=== PATIENT | male | born 1950 | race Caucasian/White ===

== ENCOUNTER 2017-01-21 05:37 | Observation (INO) | payer OTHER ==
[~2017-01-21] VITALS: Ht 172.7 cm; Wt 111.6 kg
[2017-01-21] VITALS (7 sets, daily range): BP systolic 106–144; BP diastolic 58–83
--- NOTE | ~2017-01-21 | O ---
[address] [address] OPERATIVE REPORT Name: RAGHAV GALVEZ Room #: 541-P [facility]..#: [id number] Admission: 01/21/17 Attend Phys: Aravind Oneill MD Discharge: Date of : 48 Report #: [id number] THIS REPORT FOR: //name// CC: Rigoberto Oneill DATE OF SERVICE: 01/21/2017 SERVICE: Orthopedics. FACILITY: [facility] SURGEON: Aravind Oneill M.D. RN PARALEGAL: JYOTI Corrales. PREOPERATIVE DIAGNOSES: 1. Right shoulder pain. 2. Right shoulder rotator cuff tear. 3. Right shoulder impingement 4. Right shoulder acromioclavicular joint arthrosis. 5. Right shoulder biceps tendinitis. POSTOPERATIVE DIAGNOSES: 1. Right shoulder pain. 2. Right shoulder rotator cuff tear. 3. Right shoulder impingement. 4. Right shoulder acromioclavicular joint arthrosis. 5. Right shoulder biceps tendinitis. 6. Right shoulder glenohumeral arthritis. PROCEDURES: 1. Right shoulder arthroscopic rotator cuff repair. 2. Right shoulder arthroscopic acromioplasty. 3. Right shoulder arthroscopic distal clavicle excision. 4. Open right shoulder subpectoral biceps tenodesis. COMPLICATIONS: None. DRAINS: None. SPECIMENS: None. ESTIMATED BLOOD LOSS: 5 mL. ANESTHESIA TYPE: General endotracheal with single shot interscalene nerve [address] [address] OPERATIVE REPORT Name: RAGHAV GALVEZ Room [facility]: [facility]#: [id number] Admission: 01/21/17 Attend Phys: Aravind Oneill MD Discharge: Date of : 48 Report #: [id number]. FINDINGS: 1. Full thickness supraspinatus tear with limited retraction repaired with Villar and Nephew Healicoil double loaded suture anchor x2 with single row technique. 2. Biceps tenodesis performed with Villar and Nephew Endobutton. HISTORY AND INDICATIONS: The patient is a 66-year-old right-hand dominant male with longstanding history of right shoulder pain. He is an employee of the [employer] and sustained an injury last fall when he was moving boxes, which resulted in acute rotator cuff tear. He tried conservative measures for quite some time and ultimately elected for surgical management. Risks, benefits, alternatives and indications for surgery were discussed with him in detail preoperatively, he gave full informed consent despite the risks, which include but not limited to pain, bleeding, infection, injury to nerves or blood vessels, persistent pain despite surgical intervention, failure of any repairs, reconstructions, progression of any preexisting chondral injury and complications related to anesthesia such as stroke, heart attack, pulmonary complications, thromboembolic disease and . PROCEDURE IN DETAIL: After right upper extremity was correctly identified in the preoperative holding area as the operative extremity, the patient underwent placement of a single shot interscalene nerve block by anesthesia team. He was then taken to the operating room, general endotracheal anesthesia was induced without complication. All bony prominences and subcutaneous nerves were padded appropriately. Prophylactic antibiotics were administered at appropriate time. He was positioned in the beach chair position. The right upper extremity was prepped and draped in standard sterile fashion. Time-out procedure was performed. Standard posterior viewing portal was established. Diagnostic arthroscopy revealed quite a bit of erythematous synovitis, particularly in the superior and posterior shoulder as well as in the rotator interval. There was a very large superior labrum and superior biceps and there was degenerative fraying of the superior labrum and inflammation and fraying of the biceps tendon. The subscapularis was normal. 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 Shaver was used to perform debridement of the loose articular cartilage as well as the unstable portion of the superior labrum and then a biter was used to perform a biceps tenotomy for later tenodesis. Shaver was placed in a percutaneous fashion and limited debridement was performed of the underside of the rotator cuff with the camera in the joint and then this camera was placed in the subacromial space. Thorough bursectomy was performed with the shaver and then the rotator cuff [facility] [address] [place] [address] OPERATIVE REPORT Name: RAGHAV GALVEZ Room #: 541-P [facility] M.RRhiannon#: [id number] Admission: 01/21/17 Attend Phys: Aravind Oneill MD Discharge: Date of : 48 Report #: [id number] insertion point on the greater tuberosity was debrided with shaver. A cutting block technique was then used with a bur to perform a standard acromioplasty and then attention was turned towards the acromioclavicular joint where there was a significant amount of degenerative change, particularly on the clavicular side and a limited distal clavicle excision was performed. There was some gapping at this joint and care was taken to preserve the capsule, particularly superiorly and posteriorly. The bony debris was lavaged out of the shoulder. The repair was then performed, two offset Villar and Nephew 5.5 mm PEEK HEALICOIL suture anchors with double loaded sutures were placed in the footprint and then a total of 4 mattress sutures were applied with one of them set up in a rip-stop technique to allow anatomic coverage of the footprint without placing excessive tension on the rotator cuff tissue. Overall, the tissue was healthy, particularly posteriorly, but the anterior supraspinatus tissue was somewhat thin and for that reason, the more posterior portion of the cuff was advanced anteriorly to participate in the repair primarily. The suture tails were cut and the repair was evaluated and it was felt that the lateral row was not indicated in this case. A 1-inch incision was then made adjacent to the axillary fold in the right arm and dissection was taken down in subpectoral fashion to the intertubercular groove. The biceps tendon was identified and was delivered and then a bleeding surface was prepared on the anterior surface of the humerus and then 4.5-mm drill in a unicortical fashion was used and then the Villar and Nephew Endobutton was deployed intramedullary and cinching suture technique was used to perform the tenodesis. The tendon was then sewn back upon itself and the tail was cut. The wound was irrigated and closed with 2-0 Vicryl suture followed by running subcuticular 3-0 Monocryl and Dermabond and then the portal sites were closed with 3-0 Monocryl. Sterile dressing was applied and the patient was placed in abduction pillow sling. Plan is for him to stay overnight due to history of obstructive sleep apnea. He will then be discharged home and physical therapy will start at 4 weeks. <ELECTRONICALLY SIGNED> By: Aravind Oneill MD 01/21/17 [id number] Aravind Oneill MD /cuco
[~2017-01-21 05:37] MED LIST: AUGMENTIN 875875 MG PO; KLOR-CON 1010 MEQ PO; LASIX 20 MG TAB20 MG PO; MIRAPEX1 MG PO; NEURONTIN600 MG PO
[2017-01-22 03:54] VITALS: BP 80/49
[2017-01-22 06:04] VITALS: BP 100/45
[2017-01-22 07:30] VITALS: BP 109/58
[2017-01-22 16:00] VITALS: BP 109/69
[2017-01-22 16:49] VITALS: BP 109/58
[2017-01-22 18:01] VITALS: BP 109/58
== END 2017-01-22 18:47 | disposition home or self-care (01) ==
LOC: OR 05:37 → TBA 05:37 → OR 10:13 → 5S 13:36
DX: M75.111 Incomplete rotator cuff tear or rupture of right shoulder, not specified as traumatic (principal); M75.41 Impingement syndrome of right shoulder; M19.011 Primary osteoarthritis, right shoulder; M75.21 Bicipital tendinitis, right shoulder; M24.111 Other articular cartilage disorders, right shoulder; M94.211 Chondromalacia, right shoulder
CPT/HCPCS: 50010; 50101; 50172; 50386; 50417; 50597; 50733; 50935; 51038; 51445; 53610; 54118; 55430; 56525; 56527; 62110; 62900; 64007; 64029; 70005